=== PATIENT | male | born 1965 | race Caucasian/White ===

== ENCOUNTER 2022-01-21 07:19 | Emergency (ER) | payer OTHER ==
[2022-01-21] MEDS ORDERED: KETOROLAC 30 MG/ML VIAL IVP STA (07:38)
[2022-01-21] MEDS ORDERED: SODIUM CHLORIDE 0.9% 1,000 ML IV STA (07:38)
--- NOTE | 2022-01-21 07:49 | ED Physician Documentation ---
PD HPI MALE - Stated complaint Stated Complaint: MALE /ABD PX - Chief complaint Chief Complaint: Abd Pain - History obtained from History obtained from: Patient, Family - History of Present Illness Timing - onset: Today Timing - duration: Minutes Timing - details: Abrupt onset, Still present Associated symptoms: Abdominal pain, Back pain Similar symptoms before: Diagnosis (ureterolithiasis) Recently seen: Not recently seen - Additional information Additional information: 56-year-old Ronak Alvarez has a history of kidney stone and has had to have stents and lithotripsy about 10 years ago. He is used to the sensations of a ki dney stone. He believes 2 weeks ago he passed a stone. At that time he vomited, had the pain for about 2 days. The pain migrated and resolved. He did not have any blood in his urine. He did not seek medical care at that time. Today he awoke with severe pain and in the left lower quadrant of his abdomen. He has not otherwise been ill. Review of Systems Constitutional: denies: Fever Eyes: denies: Decreased vision Ears: denies: Ear pain Nose: denies: Rhinorrhea / runny nose, Congestion Throat: denies: Sore throat Cardiac: denies: Chest pain / pressure, Palpitations Respiratory: denies: Dyspnea, Cough GI: reports: Abdominal Pain, Vomiting (2 wks ago with prior episode of pain). denies: Nausea : denies: Dysuria, Frequency, Hematuria Skin: denies: Rash Musculoskeletal: reports: Back pain. denies: Neck pain, Extremity pain Neurologic: denies: Generalized weakness, Focal weakness, Numbness PD PAST MEDICAL HISTORY - Present Medications Home Medications: Ambulatory Orders Medication Instructions Recorded Confirmed HYDROcod/ACETAM 5/325 [[place] 5/325] 1 - 2 tablet PO Q6H PRN #14 tablet 01/21/22 - Allergies Allergies/Adverse Reactions: Allergies Allergy/AdvReac Type Severity Reaction Status Date / Time No Known Drug Allergies Allergy Verified 01/21/22 07:30 PD ED PE NORMAL - Vitals Vital signs reviewed: Yes (hypertensive ) - General General: Alert and oriented X 3, Well developed/nourished, Other (48-year-old male appears to be in pain laying with his eyes closed and motionless clutching his left lower abdomen) - HEENT HEENT: Atraumatic, PERRL, EOMI - Neck Neck: Supple, no meningeal sign, No bony TTP - Cardiac Cardiac: RRR, No murmur - Respiratory Respiratory: No respiratory distress, Clear bilaterally - Abdomen Abdomen: Normal bowel sounds, Soft, Non tender, Non distended, No organomegaly - Back Back: No CVA TTP, No spinal TTP - Derm Derm: Normal color, Warm and dry, No rash - Extremities Extremities: No deformity, No edema - Neuro Neuro: Alert and oriented X 3, 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, No motor deficit, No sensory deficit, Normal speech Eye Opening: To Voice Motor: Obeys Commands Verbal: Oriented GCS Score: 14 - Psych Psych: Normal mood, Normal affect Results - Vitals Vitals: Vital Signs - 24 hr 01/21/22 01/21/22 01/21/22 07:28 07:48 11:30 Temperature 36.4 C L Heart Rate 67 71 54 L Respiratory 16 16 20 Rate Blood Pressure 149/82 H 146/74 H O2 Saturation 98 96 98 Oxygen O2 Source Room air - Labs Labs: Laboratory Tests 01/21/22 01/21/22 01/21/22 07:40 07:40 11:30 WBC 5.4 RBC 4.56 L Hgb 14.3 Hct 42.1 MCV 92.3 MCH 31.4 H MCHC 34.0 RDW 13.0 Plt Count 235 MPV 10.2 Neut # (Auto) 3.4 Lymph # (Auto) 1.3 L [place] # (Auto) 0.5 Eos # (Auto) 0.2 Baso # (Auto) 0.0 Absolute Nucleated RBC 0.00 Nucleated RBC % 0.0 Sodium 139 Potassium 3.7 Chloride 103 Carbon Dioxide 28 Anion Gap 8.0 BUN 17 Creatinine 1.0 Estimated GFR (MDRD) 77 L Glucose 113 H Calcium 9.3 Total Bilirubin 0.5 AST 19 ALT 19 Alkaline Phosphatase 76 Total Protein 7.2 Albumin 4.0 Globulin 3.2 Albumin/Globulin Ratio 1.3 Lipase 32 Urine Color YELLOW Urine Clarity CLEAR Urine pH 7.0 Ur Specific [place] 1.010 Urine Protein NEGATIVE Urine Glucose (UA) NEGATIVE Urine Ketones NEGATIVE Urine Occult Blood LARGE H Urine Nitrite NEGATIVE Urine Bilirubin NEGATIVE Urine Urobilinogen 0.2 (NORMAL) Ur Leukocyte Esterase NEGATIVE Urine RBC 0-5 Urine WBC 0-3 Ur Squamous Epith Cells RARE Squamous Urine Bacteria Rare Ur Microscopic Review INDICATED Urine Culture Comments NOT INDICATED - Rads (name of study) CT ab/pel without Radiology: Prelim report reviewed (Impression: 1. 5 mm distal left ureteral stone measuring 603 Hauswald unit and density causing mild to moderate left- sided hydronephrosis or hydroureter and mild left perinephric fat stranding. Nonobstructing stone in the right kidney as above. No right-sided hydronephrosis or hydroureter. Sahra), Final report received ( Normal-appearing urinary bladder. Possible cysts in the inferior aspect of the right hepatic lobe. No bowel obstruction or abnormal bowel wall thickening. No free fluid or free air.), EMP read indepedently, See rad report Procedures - Bedside sono Bedside sono by EMP: With use of POCUS the left flank is examined the kidney is without evidence of sonographic tenderness and there is obvious hydronephrosis present. PD MEDICAL DECISION MAKING - ED course Complexity details: reviewed results, re-evaluated patient, considered differential, d/w patient, d/w family ED course: 56 y/o male presents with abdominal/flank pain. He has a history consistent with ureterolithiasis and his exam confirms this. He has hydro on the left with POCUS and this is further confirmed with CT ab/pel. He responds well to treatment with saline and toradal and he is eventually given iv dilaudid as well. He is able to provide a urine specimen without evidence of infection and he is discharged to home. Departure - Departure Disposition: 01 Home, Self Care Clinical Impression: Ureterolithiasis Instructions: ED Stone Renal W Colic Follow-Up: [facility] [Provider Group] Alfredo Quiroz MD [Physician No Access] - Prescriptions: HYDROcod/ACETAM 5/325 [[place] 5/325] 1 - 2 tablet PO Q6H PRN #14 tablet PRN Reason: Pain Comments: Ronak today it looks like you have a 5 mm stone in the distal ureter. The stone may take several days to pass and my recommendation is to be certain you take lots of extra fluids. I have E scribed some [place] to the [facility] in [place]. I have provided a number for a urologist. If you do not pass the stone within the next 3 days my recommendation is to contact the urologist office for next available appointment. Discharge Date/Time: 01/21/22 12:07
[2022-01-21 08:00] LABS: BASOPHILS % (AUTO) 0.6 %; EOSINOPHILS # (AUTO) 0.2 10^3/uL (0.0-0.7); HCT - HEMATOCRIT 42.1 % (42.0-52.0); HGB - HEMOGLOBIN 14.3 g/dL (14.0-18.0); LYMPHOCYTES # (AUTO) 1.3 10^3/uL (1.5-3.5); MEAN CORPUSCULAR HEMOGLOBIN 31.4 pg (27.0-31.0); MEAN CORPUSCULAR VOLUME 92.3 fL (80.0-94.0); MEAN PLATELET VOLUME 10.2 fL (7.4-11.4); MONOCYTES # (AUTO) 0.5 10^3/uL (0.0-1.0); MONOCYTES % (AUTO) 9.2 %; NEUTROPHILS # (AUTO) 3.4 10^3/uL (1.5-6.6); NEUTROPHILS % (AUTO) 62.8 %; PLT - PLATELET COUNT 235 10^3/uL (130-450); RED BLOOD COUNT 4.56 10^6/uL (4.70-6.10); WHITE BLOOD COUNT 5.4 x10^3/uL (4.8-10.8)
[2022-01-21 08:18] LABS: ALBUMIN/GLOBULIN RATIO 1.3 (1.0-2.2); BILIRUBIN,TOTAL 0.5 mg/dL (0.2-1.0); CALCIUM 9.3 mg/dL (8.5-10.3); POTASSIUM 3.7 mmol/L (3.5-5.0); TOTAL PROTEIN 7.2 g/dL (6.7-8.2)
--- NOTE | 2022-01-21 08:32 | CT Report ---
PROCEDURE: ABDOMEN/PELVIS WO INDICATIONS: L flank pain hydro with POCUS TECHNIQUE: Noncontrast 5 mm thick sections acquired from the diaphragms to the symphysis. 5 mm coronal and sagi ttal reformats were then performed. For radiation dose reduction, the following was used: automated exposure control, adjustment of mA and/or kV according to patient size. COMPARISON: None. FINDINGS: Image quality: Excellent. ABDOMEN: Lung bases: Calcified granuloma is seen in right lower lobe the right lung base series 4 image 20. He art size is normal. Solid organs: Liver and spleen are normal in size. Well-circumscribed hypodensity in inferior and m edial aspect of right hepatic lobe is seen and measures 1.1 cm in size and 7.3 Hounsfield unit in den sity series 3 image 52. No discrete splenic lesion. Gallbladder is within normal limits. Pancreas is normal in contours. No adrenal nodules. Kidneys are normal in size. Mild to moderate left-sided hydronephrosis and perinephric fat stranding is seen. There is left-sided proximal to mid hydroureter. 5 mm stone is seen in distal left ureter an d measures 603 Hounsfield unit in density. 1 cm nonobstructing stone is seen in midpole of right kidn ey measures 970 Hounsfield unit in density. No right-sided hydronephrosis or hydroureter. Peritoneum and bowel: Unenhanced bowel loops demonstrate normal wall thickness and caliber. No free fluid or air. Nodes and vessels: No retroperitoneal or mesenteric adenopathy by size criteria. Aorta and inferior vena cava are normal in caliber. Miscellaneous: There is a small umbilical hernia containing fat only. PELVIS: Genitourinary: Bladder wall thickness is normal. Miscellaneous: No inguinal hernias or adenopathy. Bones: No suspicious bony lesions. No vertebral body compression fractures. IMPRESSION: 1. 5 mm distal left ureteral stone measures 603 Hounsfield unit in density causing mild to moderate l eft-sided hydronephrosis or hydroureter and mild left perinephric fat stranding. 2. Nonobstructing stone in right kidney as above. No right-sided hydronephrosis or hydroureter. Sahra l-appearing urinary bladder. 3. Possible cysts in inferior aspect of right hepatic lobe. 4. No bowel obstruction or abnormal bowel wall thickening. No free fluid of free air. Reviewed by: Fransisco Healy MD on 01/21/2022 8:31 AM PST Approved by: Fransisco Healy MD on 01/21/2022 8:31 AM [facility] Station ID: [id number]
[2022-01-21] MEDS ORDERED: HYDROmorphone 1 MG/ML CARPUJECT IVP STA (08:48)
[2022-01-21] MEDS ORDERED: ONDANSETRON 4 MG/2 ML VIAL IVP STA (08:48)
[2022-01-21 11:32] VITALS: BP 146/74
[2022-01-21 11:34] LABS: BILIRUBIN,URINE NEGATIVE (NEGATIVE); CLARITY,URINE CLEAR (CLEAR); GLUCOSE, URINE (UA) NEGATIVE (NEGATIVE); KETONES,URINE (UA) NEGATIVE (NEGATIVE); LEUKOCYTE ESTERASE, URINE NEGATIVE (NEGATIVE); NITRITE,URINE NEGATIVE (NEGATIVE); OCCULT BLOOD,URINE LARGE (NEGATIVE); PROTEIN,URINE NEGATIVE (NEGATIVE); UROBILINOGEN,URINE 0.2 (NORMAL) E.U./dL (NORMAL)
[2022-01-21 11:44] LABS: BACTERIA,URINE Rare /HPF (None Seen); RBC,URINE 0-5 /HPF (0-5); SQUAMOUS EPITHELIAL CELL,UR RARE Squamous (<= Few); WBC,URINE 0-3 /HPF (0-3)
[2022-01-21] MEDS ORDERED: HYDROcod/ACETAM 5/325 MG TABLET PO STA (12:01)
== END 2022-01-21 12:07 | disposition home or self-care (01) ==
LOC: ED 07:19
DX: N13.2 Hydronephrosis with renal and ureteral calculous obstruction (principal)
CPT/HCPCS: 36415; 51798; 74176; 80053; 81001; 83690; 85025; 96361; 96374; 96375; 99282; 99284; A9270; J1170; 81003; 87086